=== PATIENT | male | born 1955 | race Caucasian/White ===

== ENCOUNTER → 2019-03-17 | Outpatient (CLI) | payer MEDICARE ==
[~2019-03-17] MED LIST: CENTRUM SILVER1 TA1 PO; CEPHALEXIN500 M1 PO; NEXIUM 20MG20 MG PO; PREDNISONE20 MG PO
== END ==
LOC: COL.RAD 09:00
DX: M19.011 Primary osteoarthritis, right shoulder (principal)
CPT/HCPCS: J3301; Q9967

== ENCOUNTER → 2020-12-09 | Outpatient (CLI) | payer MEDICARE ==
[~2020-12-09] VITALS: Ht 172.7 cm; Wt 91.9 kg
[2020-12-09] VITALS (15 sets, daily range): BP systolic 143–197; BP diastolic 79–127; PULSE 63–94; TEMP 98.2
[~2020-12-09] MED LIST changes: +MOBIC15 MG PO; +VITAMIN C500 MG PO
== END ==
LOC: COL.RAD 09:30
DX: R93.7 Abnormal findings on diagnostic imaging of other parts of musculoskeletal system (principal)

== ENCOUNTER → 2021-03-21 | Outpatient (CLI) | payer MEDICARE | LOC: COL.RAD 09:24 | DX: N28.1 Cyst of kidney, acquired (principal); K76.0 Fatty (change of) liver, not elsewhere classified ==